=== PATIENT | female | born 1970 | race Caucasian/White ===

== ENCOUNTER → 2020-05-29 15:31 | Outpatient (CLI) | payer OTHER, SELFPAY ==
--- NOTE | ~2020-05-29 | MM_ITS ---
EXAMINATION: MM screening [facility] BI w adri HISTORY: Screening TECHNIQUE: Craniocaudal and mediolateral oblique 3-D tomosynthesis images were obtained and synthetic 2-D images were generated. CAD analysis was submitted and interpreted. COMPARISON: Comparison to multiple prior studies sequentially, with oldest reviewed study dated 05/18. BREAST PARENCHYMAL COMPOSITION: There are scattered areas of fibroglandular density. FINDINGS: There is no evidence of suspicious mass, calcification, or architectural distortion to sugg est malignancy in either breast. There has been no suspicious interval change. IMPRESSION: 1. No mammographic evidence of malignancy. 2. Recommend routine screening mammography in one year. BI-RADS Category 1: Negative Reviewed, dictated and finalized at location A.
== END ==
PROVIDERS: Visit Provider Obstetrics & Gynecology
DX: Z12.31 Encounter for screening mammogram for malignant neoplasm of breast (principal)
CPT/HCPCS: 77063; 77067

== ENCOUNTER 2020-06-22 06:58 | Outpatient (NON) | payer OTHER, SELFPAY ==
[2020-06-23 01:31] LABS: SARS-CoV-2 RNA PCR Negative
== END 2020-06-22 06:59 ==
LOC: ANHCOVIDDT 06:58
PROVIDERS: Visit Provider Physician Assistant
DX: Z20.828 Contact with and (suspected) exposure to other viral communicable diseases (principal); R68.89 Other general symptoms and signs
CPT/HCPCS: 87635; C9803; U0003

== ENCOUNTER → 2021-07-10 11:29 | Outpatient (CLI) | payer OTHER, SELFPAY ==
--- NOTE | ~2021-07-10 | MM_ITS ---
EXAMINATION: MM screening [facility] BI w adri HISTORY: Screening mammogram TECHNIQUE: Craniocaudal and mediolateral oblique 3-D tomosynthesis images were obtained and synthetic 2-D images were generated. CAD analysis was submitted and interpreted. COMPARISON: 05/29/2020, 07/19/2018, 12/25/2017 BREAST PARENCHYMAL COMPOSITION: There are scattered areas of fibroglandular density. FINDINGS: There is no evidence of suspicious mass, calcification, or architectural distortion to sugg est malignancy in either breast. There has been no suspicious interval change. IMPRESSION: 1. No mammographic evidence of malignancy. 2. Recommend routine screening mammography in one year. BI-RADS Category 1: Negative Reviewed, dictated and finalized at location A. NCE EDUCATION PROFESSOR
== END ==
PROVIDERS: Visit Provider Obstetrics & Gynecology
DX: Z12.31 Encounter for screening mammogram for malignant neoplasm of breast (principal)
CPT/HCPCS: 77063; 77067

== ENCOUNTER 2022-07-21 10:08 | Emergency (ER) | payer OTHER, SELFPAY ==
--- NOTE | ~2022-07-21 | US_ITS ---
EXAMINATION: US pelvic complete w TV DATE: 07/21/2022 14:40 INDICATION: RLQ pain, hsx of ovarian cyst TECHNIQUE: Multiple transabdominal and endovaginal sonographic images of the pelvis were obtained. COMPARISON: CT abdomen and pelvis 07/21/2022 FINDINGS: Uterus: Surgically absent. Right Ovary: Right ovary not visualized. Right adnexal tenderness to transducer pressure. Left Ovary: Not visualized. There is no free fluid in the pelvis. IMPRESSION: Limited examination. Ovaries not visualized. Right adnexal tenderness to transducer pressure. Reviewed, dictated and finalized at location K. ABLE FEED MILL OPERATOR IMPRESSION: Limited examination. Ovaries not visualized. Right adnexal tenderness to transd ucer pressure.
--- NOTE | ~2022-07-21 | CT_ITS ---
EXAMINATION: CT abdomen pelvis w con DATE: 07/21/2022 13:04 INDICATION: Right lower quadrant pain TECHNIQUE: Computed tomography (CT) of the abdomen and pelvis was performed with 100 cc Omnipaque 350 intravenous contrast. The dose-length product was 516.08 mGy-cm. Automated exposure control and iter ative reconstruction technique were employed. COMPARISON: CT dated 06/01/2006. FINDINGS: Lung bases are unremarkable. Heart size normal. No significant pleural or pericardial effus ion. There is a 1.7 cm x 0.9 cm mass left hepatic lobe with peripheral enhancement, most likely benig n hemangioma in the absence of known malignancy. Gallbladder is present. The spleen, pancreas, adrena l glands and kidneys are unremarkable. No hydronephrosis. Gallbladder is present. Nonobstructive charlie l pattern. Small fat-containing umbilical hernia. No abnormal pelvic masses or fluid collections. No significant vascular abnormality. No lymphadenopathy. No free air or free fluid. There is moderate rick mbar spondylosis. IMPRESSION: 1. No acute abdominal abnormality. Reviewed, dictated and finalized at location A. K SAW OPERATOR
[2022-07-21 10:10] VITALS: BP 122/79; PULSE 115; RESP 18; TEMP 36.8; O2SAT 99
[2022-07-21 10:36] LABS: Basophils Percent Auto 0.7 % (0.2-1.2); Eosinophils Absolute Auto 0.1 K/mm3 (0-0.3); Eosinophils Percent Auto 2.1 % (0-4.4); Hematocrit 39.9 % (37.0-47.0); Immature Granulocyte Absolute 0.01 K/mm3 (0.00-0.031); Immature Granulocyte Percent A 0.2 % (0-0.5); Lymphocytes Absolute Auto 2.06 K/mm3 (0.9-3.2); Lymphocytes Percent Auto 33.6 % (18.3-44.2); Mean Corpuscular HGB Conc 32.6 g/dl (32-36); Mean Corpuscular Hemoglobin 27.7 pg (26-34); Mean Corpuscular Volume 85.1 fl (80-100); Monocytes Absolute Auto 0.4 K/mm3 (0.1-0.6); Monocytes Percent Auto 6.2 % (2.6-8.5); Neutrophils Absolute Auto 3.5 K/mm3 (1.3-6.7); Neutrophils Percent Auto 57.2 % (45.5-73.1); Platelet Count Result 350 k/mm3 (150-375); Red Blood Count 4.69 M/mm3 (4.2-5.4); Red Cell Distribution Width 12.6 % (11.5-14.5); White Blood Count 6.1 K/mm3 (4.5-10.0)
[2022-07-21 10:44] LABS: Alanine Aminotransferase 29 U/L (6-35); Albumin Level 5.1 g/dL (3.5-5.1); Alkaline Phosphatase 82 U/L (38-126); Anion Gap 11 mmol/L (8-16); Aspartate Amino Transferase 43 U/L (14-36); Bilirubin,Total 0.9 mg/dL (0.2-1.3); Blood Urea Nitrogen 14 mg/dL (7-17); Calcium 9.1 mg/dL (8.4-10.2); Carbon Dioxide 20 mmol/L (22-30); Chloride 107 mmol/L (98-107); Estimated CRCL calculation 87 ml/min; Estimated Glomerular Filt Rate > 60; Glucose 119 mg/dL (65-110); Sodium 138 mmol/L (137-145)
--- NOTE | 2022-07-21 12:04 | ED.ABDPAIN ---
HPI - Abdominal Pain General Chief Complaint: Abdominal Pain Stated Complaint: right flank pain Time Seen by Provider: 07/21/22 11:54 History of Present Illness HPI narrative: 51-year-old female presenting to the emergency department for evaluation of intermittent right lower quadrant pain. Patient states over the past 2 months she has had a vague generalized right lower quadrant pain that she describes as aching. Patient states the pain is not constant but does occur frequently. Patient states over the last few days she has had increased frequency of intermittent sharp right lower quadrant pain that lasts a few seconds. Patient did have follow-up with [facility] and they felt it was not an ovarian cyst. Outpatient labs were ordered. Patient states due to the worsening pain today she did present to the emergency department for evaluation. Patient denies any associated chest pain or shortness of breath. Patient denies any associate nausea vomiting diarrhea or constipation. Patient does have a prior history of a kidney stone in 2003. Patient also does report a prior history of ovarian cyst. Related Data Allergies Allergy/AdvReac Type Severity Reaction Status Date / Time Sulfa (Sulfonamide Allergy Mild HIVES Verified 07/21/22 11:42 Antibiotics) sulfanilamide Allergy Unknown Hives Verified 07/21/22 11:42 Review of Systems Review of Systems: CONSTITUTIONAL: Denies fever, chills, or sweats. EYES: Denies visual changes, redness, or discharge. ENT: Denies rhinorrhea, congestion, sore throat, or otalgia. CARDIOVASCULAR: Denies chest pain, palpitations, or edema. RESPIRATORY: Denies cough or dyspnea. GASTROINTESTINAL: See HPI GENITOURINARY: Denies dysuria or hematuria. SKIN: Denies rash or itching. MUSCULOSKELETAL: Denies back pain, joint pain, or myalgia. NEUROLOGIC: Denies headache, numbness, or weakness. PSYCHIATRIC: Denies anxiety or depression. [facility] Family History Family History Mother Family history of osteoporosis Patient's mother is in good health Sibling Patient's brother is in good health Family history of elevated blood lipids Grandparent Family history of malignant neoplasm of breast Father Family history of heart disease in male family member before age 55 Hypertension Patient's father is in good health Other Carcinoma of colon Social History Social History Smoking packs per day: 1 Smoking cigarettes per day: 20.0 Years smoked: 15 Smoking pack-years: 15.00 Smoking status: Former smoker Second hand tobacco smoke exposure: No Smoking end date: 08/17/00 Alcohol intake: never Exam Narrative: APPEARANCE: Well appearing, no pain, no distress, well-nourished. HEAD: normocephalic, atraumatic. EYES: PERRLA/EOMI, conjunctivae clear. NOSE: Normal no drainage NECK: Supple. No adenopathy, no masses. RESPIRATORY: Airway patent, respirations nonlabored. Clear to auscultation bilaterally, no rales, rhonchi, wheezing. CARDIOVASCULAR: Regular rate and rhythm without murmurs rubs or gallops. ABDOMINAL: Bilateral quadrant tenderness to palpation. No CVA tenderness to palpation. Otherwise soft nontender abdomen. MUSCULOSKELETAL: Moves all extremities. Strength/ROM intact, No edema, No calf tenderness. NEURO: Alert. Cranial nerves II through XII intact. Grossly intact SKIN: Warm, dry. Normal Color Course Course Emergency Course: Patient declined any medications for pain or nausea control at this time. Patient CT scan shows no acute abnormality. Ultrasound showed no evidence of torsion. UA did have some hematuria but CT scan showed no evidence of ureteral calculi. Afebrile with no leukocytosis. Patient's electrolytes are within normal limits. UA showed some hematuria. Patient denies any current bleeding. Patient was updated on the results of the work-up and was comfortable with the plan
[2022-07-21 12:43] LABS: Appearance Urine Clear (Clear); Bilirubin Urine 1+ (Negative); Blood Urine Trace-intact (Negative); Color Urine Yellow (Yellow); Glucose Urine UA Negative (Negative); Ketones Urine Trace mg/dL (Negative); Leukocyte Esterase Ur Negative LEU/UL (Negative); Nitrate Urine Negative (Negative); Protein Urine Negative (Negative); Urobilinogen Urine 0.2 mg/dL (<2.0); pH Urine 5.5 (5.0-9.0)
[2022-07-21 12:47] LABS: Bacteria Urine Trace /hpf; Mucus Urine Few /lpf; Squamous Epithelial Cell Urine Few /hpf (Few); WBC Urine 0-3 /hpf
[2022-07-21 12:50] LABS: Add Urine Microscopic? YES
== END 2022-07-21 15:12 | disposition home or self-care (01) ==
PROVIDERS: Emergency Medicine; Emergency Provider Emergency Medicine; PCP Internal Medicine
DX: R10.31 Right lower quadrant pain (principal); Z87.442 Personal history of urinary calculi; Z87.891 Personal history of nicotine dependence
CPT/HCPCS: 36415; 74177; 76830; 76856; 80053; 81001; 85025; 99284; Q9967

== ENCOUNTER → 2022-08-04 09:01 | Outpatient (CLI) | payer OTHER, SELFPAY ==
--- NOTE | ~2022-08-04 | US_ITS ---
Abdominal Sonogram: Real-time sonographic imaging of the abdomen was performed. Clinical History: Abdominal pain Findings: The liver appears normal in overall echotexture. No intrahepatic biliary dilatation. Quest ionable very subtle 2 cm hyperechoic mass. Main portal vein demonstrates normal direction of flow. Th e spleen is normal in size without evidence of focal lesion. The gallbladder is well distended, and appears normal with no evidence of gallstone or wall thickening. The common bile duct measures 4 mm. The visualized pancreas, aorta, and IVC are unremarkable. The right kidney measures 10.0 cm in vamshi th and the left kidney measures 9.9 cm. There is no hydronephrosis or renal calculus. Impression: Very subtle 2 cm hyperechoic hepatic mass, which would be most likely hemangioma. This correlates wit h findings on recent CT dated 07/21/2022. Reviewed, dictated and finalized at location [] SAFETY MANAGER Impression: Very subtle 2 cm hyperechoic hepatic mass, which would be most likely hemangiom a. This correlates with findings on recent CT dated 07/21/2022.
== END ==
PROVIDERS: PCP Internal Medicine; Visit Provider Physician Assistant
DX: R10.9 Unspecified abdominal pain (principal)
CPT/HCPCS: 76700

== ENCOUNTER → 2022-10-03 13:24 | Outpatient (CLI) | payer OTHER, SELFPAY ==
--- NOTE | ~2022-10-03 | MM_ITS ---
EXAMINATION: MM screening [facility] BI w adri HISTORY: Screening mammogram TECHNIQUE: Craniocaudal and mediolateral oblique 3-D tomosynthesis images were obtained and synthetic 2-D images were generated. CAD analysis was submitted and interpreted. COMPARISON: 07/06/2021, 05/29/2020 bilateral screening mammogram examinations BREAST PARENCHYMAL COMPOSITION: There are scattered areas of fibroglandular density. FINDINGS: There is no evidence of suspicious mass, calcification, or architectural distortion to sugg est malignancy in either breast. There has been no suspicious interval change. IMPRESSION: 1. No mammographic evidence of malignancy. 2. Recommend routine screening mammography in one year. BI-RADS Category 1: Negative Reviewed, dictated and finalized at location A. ET ASSEMBLY PRESS SETTER OPERATOR
== END ==
PROVIDERS: PCP Obstetrics & Gynecology; Visit Provider Obstetrics & Gynecology
DX: Z12.31 Encounter for screening mammogram for malignant neoplasm of breast (principal)
CPT/HCPCS: 77063; 77067

== ENCOUNTER → 2023-01-14 12:36 | Outpatient (CLI) | payer OTHER, SELFPAY ==
--- NOTE | ~2023-01-14 | MR_ITS ---
EXAMINATION: MR abdomen wo/w con DATE: 01/14/2023 13:44 INDICATION: Geo hepatic mass TECHNIQUE: Magnetic resonance imaging (MRI) of the abdomen was performed without and with 14 mL Multi yordy intravenous contrast. Sequences included coronal T2-weighted SS-FSE, coronal and axial FS 2D-F IESTA, axial STIR FSE, axial T2-weighted SS-FSE, axial T2-weighted FS SS-FSE, axial diffusion-weighte d SE, axial dual-echo T1-weighted FSPGR, and axial and coronal T1-weighted LAVA. Postcontrast axial T 1-weighted LAVA images were obtained in a time course. Postcontrast coronal T1-weighted LAVA images w ere obtained. COMPARISON: Ultrasound dated 08/04/[address] dated 07/21/2022 FINDINGS: Heart size normal. No pericardial or pleural effusion. 1.6 cm T2 hyperintense lesion in segment 2 of the liver and 7 mm T2 hyperintense lesion in segment IVb of the liver, both demonstrating discontinuo us peripheral puddling of contrast which progressively fills in on delayed imaging consistent with he mangiomas. No other hepatic lesions identified. Gallbladder, spleen, bilateral adrenal glands and kid neys are normal. 4 mm T2 hyperintense nonenhancing cyst in the body of the pancreas. Visualized porti ons of bowels are unremarkable. No pathologically enlarged abdominal lymphadenopathy. Moderate lumbar spondylosis. No suspicious bone lesions identified. IMPRESSION: 1. A couple small lesions in the liver, the larger measuring 1.6 cm, with signal and enhancement anabella acteristics most consistent with hemangiomas. 2. Indeterminate 4 mm simple appearing cystic lesion at the body of the pancreas. Recommend one-year follow-up pre and postcontrast MRI. Reviewed, dictated and finalized at location B. IMPRESSION: 1. A couple small lesions in the liver, the larger measuring 1.6 cm, with signa l and enhancement characteristics most consistent with hemangiomas. 2. Indeterminate 4 mm simple appearing cystic lesion at the body of the pancrea s. Recommend one-year follow-up pre and postcontrast MRI.
== END ==
PROVIDERS: PCP Internal Medicine; Visit Provider Physician Assistant
DX: K76.89 Other specified diseases of liver (principal)
CPT/HCPCS: 74183; A9577

== ENCOUNTER 2023-10-16 13:39 | Outpatient (CLI) | payer OTHER, SELFPAY ==
--- NOTE | ~2023-10-16 | MR_ITS ---
EXAMINATION: MR abdomen wo/w con DATE: 10/16/2023 14:35 INDICATION: Liver lesion TECHNIQUE: Magnetic resonance imaging (MRI) of the abdomen was performed without and with 15 mL Multi yordy intravenous contrast. Sequences included coronal T2-weighted SS-FSE, coronal and axial FS 2D-F IESTA, axial STIR FSE, axial T2-weighted SS-FSE, axial T2-weighted FS SS-FSE, axial diffusion-weighte d SE, axial dual-echo T1-weighted FSPGR, and axial and coronal T1-weighted LAVA. Postcontrast axial T 1-weighted LAVA images were obtained in a time course. Postcontrast coronal T1-weighted LAVA images w ere obtained. COMPARISON: 01/14/2023 FINDINGS: Heart size normal. No pericardial or pleural effusion. No significant change in a 1.7 cm T2 hyperinte nse lesion in segment 2 of the liver and 7 mm T2 hyperintense lesion in segment IVb of the liver, bot h demonstrating discontinuous peripheral puddling of contrast which progressively fills in on delayed imaging consistent with hemangiomas. No other hepatic lesions identified. Gallbladder, spleen, bilat eral adrenal glands and kidneys are normal. Unchanged T2 hyperintense nonenhancing cyst in the body o f the pancreas measuring 4 mm in maximal diameter on the axial imaging. This is clearly visualized on the coronal T2 weighted series #4, image 10 measures 6 mm but also appears to directly communicate w ith the main pancreatic duct. Visualized portions of bowels are unremarkable. No pathologically enlar ged abdominal lymphadenopathy. Moderate lumbar spondylosis. No suspicious bone lesions identified. IMPRESSION: 1. No interval change in a couple hemangiomas in the left hepatic lobe measuring 1.7 cm and 7 mm. 2. Unchanged indeterminate 4 mm simple appearing cystic lesion at the body of the pancreas. Recommend continued annual follow-up pre and postcontrast MRI. Reviewed, dictated and finalized at location B. RANCE CLAIMS ANALYST IMPRESSION: 1. No interval change in a couple hemangiomas in the left hepatic lobe measurin g 1.7 cm and 7 mm. 2. Unchanged indeterminate 4 mm simple appearing cystic lesion at the body of t he pancreas. Recommend continued annual follow-up pre and postcontrast MRI.
== END 2023-10-16 13:40 ==
LOC: MICIMG 13:40
PROVIDERS: PCP Physician Assistant; Visit Provider Physician Assistant
DX: K76.9 Liver disease, unspecified (principal); K86.9 Disease of pancreas, unspecified
CPT/HCPCS: 74183; A9577

== ENCOUNTER 2023-10-28 15:00 | Outpatient (CLI) | payer OTHER, SELFPAY ==
--- NOTE | ~2023-10-28 | MM_ITS ---
EXAMINATION: MM screening [facility] BI w adri HISTORY: Screening mammogram TECHNIQUE: Craniocaudal and mediolateral oblique 3-D tomosynthesis images were obtained and synthetic 2-D images were generated. CAD analysis was submitted and interpreted. COMPARISON: October 03, 2022, July 10, 2021 bilateral screening mammogram examinations BREAST PARENCHYMAL COMPOSITION: There are scattered areas of fibroglandular density. FINDINGS: There is no evidence of suspicious mass, calcification, or architectural distortion to sugg est malignancy in either breast. There has been no suspicious interval change. IMPRESSION: 1. No mammographic evidence of malignancy. 2. Recommend routine screening mammography in one year. BI-RADS Category 1: Negative Reviewed, dictated and finalized at location A.
== END 2023-10-28 15:01 ==
PROVIDERS: PCP Obstetrics & Gynecology; Visit Provider Obstetrics & Gynecology
DX: Z12.31 Encounter for screening mammogram for malignant neoplasm of breast (principal)
CPT/HCPCS: 77063; 77067

== ENCOUNTER 2024-10-28 15:14 | Outpatient (CLI) | payer OTHER, SELFPAY ==
--- NOTE | ~2024-10-28 | MR_ITS ---
MRI of the abdomen: Clinical indication: Liver disease COMPARISON: 10/16/2023. Technique: Coronal SSFSE ARC, WATER:coronal LAVA-FLEX, Coronal 2D FIESTA FatSat, Axial SSFSE BH ARC, Axial 3D DualEcho BH, Axial SSFSE-IR, Axial DWI b=500, Axial 2D FIESTA FatSat, pre and dynamic postco ntrast Axial LAVA ARC, postcontrast Coronal In and Opposed phase LAVA FLEX . Following intravenous ad ministration of 14 cc MultiHance gadolinium, T1-weighted fat-sat imaging was performed in the axial a nd coronal planes. Findings: Gallbladder is unremarkable. The common bile duct is normal in course and caliber. No filli ng defects are seen within the CBD. No evidence of intrahepatic biliary ductal dilatation. The pancre atic duct is normal in size. 1.5 cm T2 hyperintense lesion left hepatic lobe demonstrates discontinuous peripheral nodular enhance ment with progressive fill in over time, compatible with hemangioma. There is an additional 6 mm keesha ngioma in the anteroinferior liver (series 7 image 20). These findings are unchanged from prior exam. Spleen, adrenals, kidneys appear normal. Tiny cystic lesion at the pancreatic body is not as well-see n on the current exam as on prior exam. The aorta and the paraaortic regions appear normal. Impression: Stable hepatic hemangiomas, as detailed above. Tiny cystic lesions of the great body is not as well-seen on the current exam as on prior exam. Reviewed, dictated and finalized at [facility]. Impression: Stable hepatic hemangiomas, as detailed above. Tiny cystic lesions of the great body is not as well-seen on the current exam a s on prior exam.
== END 2024-10-28 15:15 | disposition home or self-care (01) ==
PROVIDERS: PCP Internal Medicine; Visit Provider Internal Medicine
DX: K76.9 Liver disease, unspecified (principal); K86.9 Disease of pancreas, unspecified
CPT/HCPCS: 74183; A9577

== ENCOUNTER 2024-11-16 06:47 | Outpatient (CLI) | payer OTHER, SELFPAY ==
--- NOTE | ~2024-11-16 | NM_ITS ---
EXAMINATION: NM hepatobiliary w pharm DATE: 11/16/2024 10:49 INDICATION: Right upper quadrant abdominal pain COMPARISON: 10/28/2024 TECHNIQUE: 5.2 mCi Tc-99m mebrofenin (Choletec) was administered intravenously. Scintigraphic images of the abdomen were obtained for one hour. 1.5 mcg sincalide (Kinevac) was administered by slow intr avenous infusion, and imaging was continued for 30 minutes. Gallbladder ejection fraction was calcula marcin by the technologist. FINDINGS: There is normal clearance of radiotracer from the blood pool. There is homogeneous tracer uptake by t he liver. Activity progresses to the gallbladder and bowel. The gallbladder ejection fraction (GBEF) is 79% (normal 10-90%, but most patient with gallbladder dysfunction have GBEF < 35% which does over lap with the normal range). IMPRESSION: 1. Normal hepatobiliary scan Reviewed, dictated and finalized at location A.
--- OUTSIDE RECORDS SUMMARY | 2024-11-16 06:50 | XMS_ITS | Referral Summary ---
Author Organization [facility] Address [address] [place] [address] Care Team Providers Care Instantizer Operator Name Role Phone Reyna Cornejo MD Primary Care Provider Geraldo Early MD Unavailable [phone] Allergies Active Allergy Reactions Criticality Noted Date Comments Mold Hives Medium 04/22/2018 Sulfa (Sulfonamide Antibiotics) Hives Medium Medications LORazepam (ATIVAN) 0.5 mg tablet Take 1 tablet (0.5 mg total) by mouth every 6 (six) hours as needed for anxiety Active polyethylene glycol (MIRALAX) 17 gram packetIndicatio ns:constipation Take 1 packet (17 g total) by mouth daily Active mupirocin 2 % ointment kit Apply topically Active albuterol HFA (PROVENTIL HFA,VENTOLIN HFA,PROAIR HFA) 90 mcg/actuation inhaler Inhale 2 puffs every 6 (six) hours as needed for wheezing Active estradioL (VIVELLE-DOT) 0.1 mg/[address] 1 patch on the skin 2 (two) times a week 4 Active valACYclovir (VALTREX) 500 mg tabletIndicatio ns:Prophylaxis, Medical Take 1 tablet (500 mg total) by mouth daily Active fexofenadine-ps eudoephedrine (NAYANA-D) 60-120 mg per 12 hr tabletIndicatio ns:allergies Take 1 tablet by mouth 2 (two) times a day 180 tablet 1 4 Active Active Problems Problem Noted Date Diagnosed Date FERN (generalized anxiety disorder) 04/12/2024 Overview (04/12/2024): Mild anxiety. Rare use of Ativan a few times a month. As long as remains sparingly, I do not have problem with this. If more frequent, then needs controller High cholesterol 04/12/2024 Overview (04/12/2024): reproted dx. checka dn make recommendations based onr esults Mild intermittent asthma without complication Resolved Problems Problem Noted Date Diagnosed Date Resolved Date Onychomycosis 05/29/2020 04/12/2024 Lumbago 03/15/2013 04/12/2024 Immunizations Immunization Administration Dates Next Due Influenza, Quadrivalent, Rec ombinant, Egg Free, Preservative Free, Intramuscular 05/29/2022,05/13/2020 Influenza, Quadrivalent, Spl it, Preservative Free, Intramuscular 05/04/2023,05/04/2021,05/26/2019 Influenza, Split 04/23/2018 Influenza, Trivalent, IM (MDV) 05/07/2016 Influenza, Trivalent, Preser vative Free, Intramuscular 06/05/2015 Pfizer SARS-CoV-2 Monovalent Vaccination (12+ Yrs) PURPLE 10/25/2020,10/04/2020 Tdap 04/12/2024 ZOSTER Recombinant 09/08/2020 Social History Tobacco Use Types Packs/Day Years Used Date Smoking Tobacco: Former Cigarettes 0.5 24.6 1 - 12/26/2016 Smokeless Tobacco: Never Tobacco Cessation:Counseling Given: No Comments:Was not a heavy smoker AUDIT-C Answer Date Recorded Q1: How often do you have a drink containing alc ohol? 2-4 times a month 04/12/2024 Q2: How many drinks containi ng alcohol do you have on a typical day when you are drinking? 1 or 2 04/12/2024 Q3: How often do you have si x or more drinks on one occasion? Monthly 04/12/2024 PHQ-2 Answer Date Recorded PHQ-2 Total Score (If total score is 3 or more points, staff should administer the PHQ-9) 0 04/12/2024 Personal Safety Answer Date Recorded Getting School Help Needed Not on file 10/30 Comments No Sex and Gender Information Value Date Recorded Sex Assigned at Not on file Legal Sex Female 8:43 AM CHEMICAL PROCESS EQUIPMENT OPERATOR Gender Identity Female 11/19/2020 7:30 AM CDT Sexual Orientation Straight 11/19/2020 7: 30 AM CDT Last Filed Vital Signs Vital Sign Reading Time Taken Comments Blood Pressure 116/78 04/12/2024 10:03 AM CDT Pulse 95 04/12/2024 10:03 AM CDT Temperature 36.7 C (98 F) 04/12/2024 10:03 AM CDT Respiratory Rate 16 04/12/2024 10:03 AM CDT Oxygen Saturation 99% 04/12/2024 10:03 AM CDT Inhaled Oxygen Concentration - - Weight 74.2 kg (163 lb 9.6 oz) 04/12/2024 10:03 AM CDT Height 167.6 cm (5' 6 ) 04/12/2024 10:03 AM CDT Body Mass Index 26.41 04/12/2024 10:03 AM CDT Plan of Treatment Not on file Procedures Procedure Name Priority Date/Time Associated Diagnosis Comments HEPATITIS C ANTIBODY Routine 04/19/2024 8:18 AM CDT Routine physical examination Encounter for hepatitis C screening test for low risk patient from Last 3 Months or Most Recently Relevant to Health Maintenance Results * Hepatitis C antibody Blood (04/19/2024 8:18 AM CDT) Hep C Ab Nonreactive Nonreactive Comment: Interpretive Data Nonreactive: Antibodies to HCV not detected. Does NOT exclude the possibility of recent exposure to HCV. Equivocal: Equivocal for HCV antibodies. Supplemental molecular testing will be automatically performed to determine infection status in accordance with current CDC screening recommendations. Reactive: Positive for HCV antibodies. This may represent current or past HCV infection. Supplemental molecular testing will be automatically performed to determine current infection status in accordance with current CDC screening recommendations. Interpretive data was last revised on 2019. Blood 04/19/2024 8:18 AM CDT 04/19/2024 2:10 PM CDT Reyna Cornejo MD LAB MICROBIOLOGY - GEN ERAL ORDER[place] [id number] [address] [place] [address] from Last 3 Months or Most Recently Relevant to Health Maintenance Insurance [facility] O Care Teams Instantizer Operator Relationship Specialty Start Date End Date Reyna Cornejo MD PCP - General Family Medicine 04/12/24 Geraldo Early MD [id number] [address] Referring Physician Obstetrics and Gynecology 04/12/24
--- OUTSIDE RECORDS SUMMARY | 2024-11-16 06:50 | XMS_ITS | Clinical Summary ---
Author Organization [facility] Address [address] [place] [address] Care Team Providers Care Marketing Associate Name Role Phone Neal Caldera Danielle GÓMEZ Primary Care Provider [phone] Source Comments [facility],non-owned Affiliates and Associated Physician Practices is amultiple site organization consisting of ambulatory clinics and hospital sitesin [place], [place], [place] and [place]. This disclosure is being madepursuant to the Care Everywhere program and may not contain all information available regarding this patient. Last updated 18.[facility] Allergies Active Allergy Reactions Criticality Noted Date Comments Sulfa Drugs 08/11/2016 Medications * Be aware that medications may not be up to date on this document. Alwaysverify current medications with the patient. Medication Sig Dispensed Refills Start Date End Date Status fluticasone propionate (FLONASE) 50 MCG/ACT nasal sprayIndications:Acut e maxillary sinusitis, recurrence not specified Metter 1 Metter into each nostril 2 times daily 1 Bottle 08/11/2016 Active mupirocin (BACTROBAN) 2 % ointment APPLY A SMALL AMOUNT TO THE AFFECTED AREA(S) TWICE DAILY 0 05/05/2019 Active Cholecalciferol ([facility] VIT D 5000 HIGH-POTENCY PO) Active biotin 5 MG tablet Take 5 mg by mouth once daily Active Fexofenadine-Pseudoep hedrine (NAYANA-D 12 HOUR PO) Active Active Problems Problem Noted Date Diagnosed Date Skin lesion of back 05/16/2019 Social History Tobacco Use Types Packs/Day Years Used Date Smoking Tobacco: Former Smokeless Tobacco: Former Alcohol Use Standard Drinks/Week Comments Not Currently 0 (1 standard drink = 0.6 oz pur e alcohol) Sex and Gender Information Value Date Recorded Sex Assigned at Not on file Gender Identity Not on file Sexual Orientation Not on file Last Filed Vital Signs Vital Sign Reading Time Taken Comments Blood Pressure 105/69 05/16/2019 1:35 PM CDT Pulse 92 05/16/2019 1:35 PM CDT Temperature 37 C (98.6 F) 08/11/2016 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 Respiratory Rate 16 08/11/2016 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 Oxygen Saturation 97% 05/16/2019 1:35 PM CDT Inhaled Oxygen Concentration - - Weight 69.9 kg (154 lb) 05/16/2019 1:35 PM CDT Height 167.6 cm (5' 6 ) 05/16/2019 1:35 PM CDT Body Mass Index 24.86 05/16/2019 1:35 PM CDT Plan of Treatment Health Maintenance Due Date Last Done Comments COLOGUARD (AGES 45-75) - COL ON CA SCREENING 1969 COLON MONITORING 1969 COLONOSCOPY - COLON CA SCREENING 1969 CT COLONOGRAPHY - COLON CA SCREENING 1969 Colorectal Cancer Screening 1969 FIT - COLON CA SCREENING 1969 FLEX SIG - COLON CA SCREENING 1969 LIPID TESTING 1969 MAMMOGRAM 1969 PAP SMEAR 1969 HIV SCREENING 1984 HEPATITIS C SCREENING 09/23/1987 DTAP/TDAP/TD VACCINES (1 - Tdap) 1988 HEPATITIS B VACCINE (1 of 3 - 19+ 3-dose series) 1988 PNEUMOCOCCAL VACCINE 50+ (1 of 1 - PCV) 2019 ZOSTER VACCINE (1 of 2) 2019 COVID-19 VACCINE ( - 2023-2 5 season) 2024 INFLUENZA VACCINE (#1) 2024 DEPRESSION SCREENING 08/17/2024 HIB VACCINE Aged Out No longer eligi ble based on patient's age to complete this topic HPV VACCINE Aged Out No longer eligi ble based on patient's age to complete this topic MENINGOCOCCAL (Group B) VACC INE SHARED DECISION-MAKING Aged Out No longer eligibl e based on patient's age to complete this topic MENINGOCOCCAL GROUPS A/C/Y/W VACCINE Aged Out No longer eligible b ased on patient's age to complete this topic PNEUMOCOCCAL VACCINE Aged Out No long er eligible based on patient's age to complete this topic Care Teams Marketing Associate Relationship Specialty Start Date End Date Neal Caldera DO [address] [place], [place] [id number] PCP - General 05/16/19
--- OUTSIDE RECORDS SUMMARY | 2024-11-16 06:50 | XMS_ITS | Clinical Summary ---
Author Organization [facility] Address [address] [place] [address] Care Team Providers Care Riveter Hand Name Role Phone Reyna Cornejo MD Primary Care Provider Geraldo Early MD Unavailable [phone] Allergies Active Allergy Reactions Criticality Noted Date [...] PURPLE 10/25/2020,10/04/2020 Tdap 04/12/2024 ZOSTER Recombinant 09/08/2020 Surgical History Surgery Date Site/Laterality Comments HYSTERECTOMY still has ovaries TUBAL LIGATION Medical History Medical History Date Comments Allergic rhinitis Anemia resolved Anxiety Arthritis Asthma Depression Kidney stone 2003 Endometriosis Family History Medical History Relation Name Comments Arthritis Father Diabetes Father Heart disease Father Hypertension Father Lung cancer Father smoker Arthritis Mother Danielle Pan COPD Mother Danielle Pan Depression Mother Danielle Pan Heart disease Mother Danielle Pan Hyperlipidemia Mother Danielle Pan Colon cancer Mother's Brother 1 Colon polyps Mother's Brother 2 required colon resection Colon polyps Mother's Sister 1 required c olon resection Breast cancer Mother's Sister 2 Breast cancer Paternal Grandmother Relation Name Status Comments Father Mother Danielle Pan Mother's Brother 1 Alive Mother's Brother 2 Alive Mother's Sister 1 Alive Mother's Sister 2 Alive Paternal Grandmother Social History Tobacco Use Types Packs/Day Years [...] on file 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 Gender Identity Female 11/19/2020 7:30 AM CDT Sexual Orientation Straight 11/19/2020 7: 30 AM CDT Obstetrics History Last Filed Vital Signs Vital Sign Reading [...] 04/12/2024 10:03 AM CDT Plan of Treatment Health Maintenance Due Date Last Done Comments Breast Cancer Screening-Mammogram 1969 Colon Cancer Screening-Colonoscopy 1969 Hepatitis B Screening 1987 Pneumococcal vaccine <65 (1 of 2 - PCV) 1988 Zoster Vaccine (2 of 2) 11/03/2020 09/08/2020 Covid-19 Vaccine (2023-2 5 season) 2024 11/16/2023, 05/04/2023, 05/10/2022, Additional history exists Influenza Vaccine (#1) 2024 , 05/29/2022, 05/04/2021, Additional history exists Depression Screening 04/12/2025 04/12/2024, 04/12/20 Regular Well Visit/Exam 18-64 04/12/2025 04/12/2024 DTaP/Tdap/Td Vaccine (2 - Td or Tdap) 04/12/2034 04/12/2024 Hepatitis C Screening Completed 04/19/2024 Procedures Procedure Name Priority Date/Time Associated Diagnosis [...] 8:18 AM CDT 04/19/2024 2:10 PM CDT us Reyna Cornejo MD LAB MICROBIOLOGY - GEN ERAL ORDERABLES Final Result [facility] [id number] Department [place] [address] from Last 3 Months or Most Recently Relevant to Health Maintenance Insurance [facility] Care Teams Riveter Hand Relationship Specialty Start Date End Date Reyna Cornejo MD PCP - General Family Medicine 04/12/24 Geraldo Early MD [address] [address] Referring Physician Obstetrics and Gynecology 04/12/24
== END 2024-11-16 06:48 | disposition home or self-care (01) ==
PROVIDERS: PCP Internal Medicine; Visit Provider Internal Medicine
DX: R10.11 Right upper quadrant pain (principal)
CPT/HCPCS: 78227; A9537; J2805

== ENCOUNTER 2024-11-16 15:15 | Outpatient (CLI) | payer OTHER, SELFPAY ==
--- NOTE | ~2024-11-16 | MM_ITS ---
EXAMINATION: MM screening toby BI w adri HISTORY: Screening TECHNIQUE: Craniocaudal and mediolateral oblique 3-D tomosynthesis images were obtained and synthetic 2-D images were generated. CAD analysis was submitted and interpreted. COMPARISON: Comparison to multiple prior studies sequentially, with oldest reviewed study dated 12/25. BREAST PARENCHYMAL COMPOSITION: Not dense: There are scattered areas of fibroglandular density. FINDINGS: There is no evidence of suspicious mass, calcification, or architectural distortion to sugg est malignancy in either breast. There has been no suspicious interval change. IMPRESSION: 1. No mammographic evidence of malignancy. 2. Recommend routine screening mammography in one year. BI-RADS Category 1: Negative Reviewed, dictated and finalized at location A.
== END 2024-11-16 15:16 | disposition home or self-care (01) ==
LOC: MICIMG 15:16
PROVIDERS: PCP Internal Medicine; Visit Provider Obstetrics & Gynecology
DX: Z12.31 Encounter for screening mammogram for malignant neoplasm of breast (principal)
CPT/HCPCS: 77063; 77067